=== PATIENT | male | born 1960 | race Caucasian/White ===

== ENCOUNTER 2017-01-15 16:20 | Emergency (ER) | payer BC ==
--- NOTE | 2017-01-15 16:42 | UC ---
Throat Pain/Nasal Wilder HPI - HPI Summary HPI Summary: 56 YEAR OLD GENTLEMAN PRESENTS WITH COMPLAINS OF SINUS CONGESTION AND TENDERNESS. - History of Current Complaint Stated Complaint: SINUS COMPLAINT Time Seen by Provider: 01/15/17 16:41 - Allergies/Home Medications Allergies/Adverse Reactions: Allergies Allergy/AdvReac Type Severity Reaction Status Date / Time Penicillins Allergy Hives Verified 01/15/17 16:50 Sulfa Antibiotics Allergy "I got, Verified 01/15/17 16:50 like, blotches on my face." Home Medications: Home Medications Acetaminophen W/ Codeine [Acetaminophen/Codeine #3 300-30 mg] 1 tab PO Q6H PRN 01/15/17 [History Confirmed 01/15/17] Albuterol HFA INHALER* [Ventolin HFA Inhaler*] 2 puff INH Q24H PRN 01/15/17 [ History Confirmed 01/15/17] Lisinopril [Prinivil TAB 20 mg] 12.5 mg PO DAILY 01/15/17 [History Confirmed ] Nasal [place] Prescribed 1 dose BOTH NARES DAILY 01/15/17 [History Confirmed 01/15] PMH/Surg Hx/FS Hx/Imm Hx - Surgical History Surgical History: Yes Surgery Procedure, Year, and Place: T&A as a child. Appendectomy as a child. Spleenectomy, 1969, [facility]. Right Knee Arthroscopy, 2012, [facility] - Social History Alcohol Use: Rare Substance Use Type: None Smoking Status (MU): Heavy Every Day Tobacco Smoker Type: Cigarettes Amount Used/How Often: 1 1/2 PPD Length of Time of Smoking/Using Tobacco: 30 Years Have You Smoked in the Last Year: Yes Household Exposure Type: Cigarettes Review of Systems Constitutional: Negative Skin: Negative Eyes: Negative ENT: Sore Throat, Nasal Discharge, Sinus Congestion, Sinus Pain/Tenderness Respiratory: Negative Cardiovascular: Negative Gastrointestinal: Negative Genitourinary: Negative Motor: Negative Neurovascular: Negative Musculoskeletal: Negative Neurological: Negative Psychological: Negative All Other Systems Reviewed And Are Negative: Yes Physical Exam Triage Information Reviewed: Yes Eye Exam: Normal ENT: Positive: Pharyngeal erythema, Nasal congestion, Tonsillar swelling Dental Exam: Normal Neck exam: Normal Neck: Positive: 1 Respiratory Exam: Normal Cardiovascular Exam: Normal Abdominal Exam: Normal Musculoskeletal Exam: Normal Neurological Exam: Normal Psychological Exam: Normal Skin Exam: Normal Throat Pain/Nasal Course/Dx - Differential Dx/Diagnosis Provider Diagnoses: SINUSITIS Discharge - Discharge Plan Condition: Stable Disposition: HOME Prescriptions: Azithromyxin CELY (NF) [Z-Cely (Zithromax) 250 mg tabs #6] 2 tab PO .TODAY, THEN 1 DAILY #6 tab Methylprednisolone [Medrol Dosepak 4 MG*] 4 mg PO .SEE CELY INSTRUCTION #21 tab Patient Education Materials: Sinusitis (ED) Referrals: Luciana Garcia MD [Primary Care Provider] - If Needed
[2017-01-15 16:50] VITALS: BP 140/83
[2017-01-15] MEDS ORDERED: predniSONE TAB* 20 MG PO ONE (17:04)
[2017-01-15] MEDS ORDERED: Azithromycin TAB* 250 MG PO ONE (17:04)
== END 2017-01-15 17:11 | disposition home or self-care (01) ==
LOC: UCCORT 16:20
DX: J32.9 Chronic sinusitis, unspecified (principal); F17.210 Nicotine dependence, cigarettes, uncomplicated
CPT/HCPCS: 99212; A9270-GY; G0463; J7512

== ENCOUNTER 2017-01-20 10:08 | Emergency (ER) | payer BC ==
--- NOTE | 2017-01-20 10:16 | UC ---
Throat Pain/Nasal Wilder HPI - HPI Summary HPI Summary: 56 year old male presents with complains of upper frontal gum abscess. - History of Current Complaint Stated Complaint: RECHECK SINUSITIS Time Seen by Provider: 01/20/17 10:16 - Allergies/Home Medications Allergies/Adverse Reactions: Allergies Allergy/AdvReac Type Severity Reaction Status Date / Time Penicillins Allergy Hives Verified 01/20/17 10:19 Sulfa Antibiotics Allergy "I got, Verified 01/20/17 10:19 like, blotches on my face." PMH/Surg Hx/FS Hx/Imm Hx - Surgical History Surgical History: Yes Surgery Procedure, Year, and Place: T&A as a child. Appendectomy as a child. Spleenectomy, 1969, [facility]. Right Knee Arthroscopy, 2012, [facility] - Social History Alcohol Use: Rare Substance Use Type: None Smoking Status (MU): Heavy Every Day Tobacco Smoker Type: Cigarettes Amount Used/How Often: 1 1/2 PPD Length of Time of Smoking/Using Tobacco: 30 Years Have You Smoked in the Last Year: Yes Household Exposure Type: Cigarettes Review of Systems Constitutional: Negative Skin: Negative Eyes: Negative ENT: Dental Pain Respiratory: Negative Cardiovascular: Negative Gastrointestinal: Negative Genitourinary: Negative Motor: Negative Neurovascular: Negative Musculoskeletal: Negative Neurological: Negative Psychological: Negative All Other Systems Reviewed And Are Negative: Yes Physical Exam Triage Information Reviewed: Yes Eye Exam: Normal ENT Exam: Normal Dental: Positive: Abscess @ - upper frontal gum (right incisor) Neck exam: Normal Neck: Positive: 1 Respiratory Exam: Normal Cardiovascular Exam: Normal Abdominal Exam: Normal Musculoskeletal Exam: Normal Neurological Exam: Normal Psychological Exam: Normal Skin Exam: Normal Throat Pain/Nasal Course/Dx - Differential Dx/Diagnosis Provider Diagnoses: upper frontal gum abscess Discharge - Discharge Plan Condition: Stable Disposition: HOME Prescriptions: Chlorhexidine MW 0.12% 473ML* [Peridex Mouth Wash 0.12%*] 15 ml MT TID PC #1 btl Clindamycin Cap(NF) [Cleocin 300 mg Cap(NF)] 300 mg PO TID #30 cap Patient Education Materials: Dental Abscess (ED), Sinusitis (ED) Referrals: Luciana Garcia MD [Primary Care Provider] - If Needed
[2017-01-20 10:20] VITALS: BP 140/84
== END 2017-01-20 10:39 | disposition home or self-care (01) ==
LOC: UCCORT 10:08
DX: K05.219 Aggressive periodontitis, localized, unspecified severity (principal); Z88.0 Allergy status to penicillin; Z88.2 Allergy status to sulfonamides; F17.210 Nicotine dependence, cigarettes, uncomplicated
CPT/HCPCS: 99212; G0463

== ENCOUNTER 2017-02-04 08:36 | Emergency (ER) | payer BC ==
[2017-02-04 08:52] VITALS: BP 145/69
--- NOTE | 2017-02-04 09:02 | UC ---
Throat Pain/Nasal Wilder HPI - HPI Summary HPI Summary: SINUS PAIN AND PRESSURE X 7 DAYS + PAIN UPPER JAW / GUMS + NASAL CONGESTION, PND, NO FEVER, NO CHILLS - History of Current Complaint Chief Complaint: UCDentalProblem Stated Complaint: RE CHECK SINUS Time Seen by Provider: 02/04/17 08:53 Hx Obtained From: Patient Onset/Duration: Gradual Onset, Lasting Days - 10, Still Present Severity: Moderate Cough: None Associated Signs & Symptoms: Positive: Sinus Discomfort, Nasal Discharge. Negative: Fever, Vomiting, Rash - Allergies/Home Medications Allergies/Adverse Reactions: Allergies Allergy/AdvReac Type Severity Reaction Status Date / Time Penicillins Allergy Hives Verified 02/04/17 08:46 Sulfa Antibiotics Allergy "I got, Verified 02/04/17 08:46 like, blotches on my face." PMH/Surg Hx/FS Hx/Imm Hx Previously Healthy: Yes Cardiovascular History: Hypertension - Surgical History Surgical History: Yes Surgery Procedure, Year, and Place: T&A as a child. Appendectomy as a child. Spleenectomy, 1969, [facility]. Right Knee Arthroscopy, 2012, [facility] - Family History Known Family History: Positive: Hypertension Negative: Diabetes - Social History Alcohol Use: Rare Substance Use Type: None Smoking Status (MU): Heavy Every Day Tobacco Smoker Type: Cigarettes Amount Used/How Often: 1 PPD Length of Time of Smoking/Using Tobacco: Since Age 19 Have You Smoked in the Last Year: Yes Household Exposure Type: Cigarettes Review of Systems Constitutional: Negative Skin: Negative Eyes: Negative ENT: Dental Pain, Sore Throat, Nasal Discharge Respiratory: Negative All Other Systems Reviewed And Are Negative: Yes Physical Exam Triage Information Reviewed: Yes Appearance: Well-Appearing, No Pain Distress, Well-Nourished Vital Signs: Initial Vital Signs Temp 98.6 F 02/04/17 08:40 Pulse 86 02/04/17 08:40 Resp 16 02/04/17 08:40 BP 145/69 02/04/17 08:40 Pulse Ox 98 02/04/17 08:40 Eye Exam: Normal Eyes: Positive: Conjunctiva Clear ENT: Positive: Normal ENT inspection, Pharyngeal erythema, Nasal congestion, Nasal drainage, TMs normal Dental: Positive: Other: - + ERYTHEMA UPPER GUMS Neck exam: Normal Neck: Positive: Supple, Nontender, No Lymphadenopathy Respiratory: Positive: Chest non-tender, Lungs clear, Normal breath sounds, No respiratory distress Cardiovascular: Positive: RRR, No Murmur, Pulses Normal Abdominal Exam: Normal Skin Exam: Normal Throat Pain/Nasal Course/Dx - Differential Dx/Diagnosis Provider Diagnoses: SINUSITIS. DENTAL PAIN Discharge - Discharge Plan Condition: Stable Disposition: HOME Prescriptions: DOXYcycline CAP(*) [DOXYcycline 100MG CAP(*)] 100 mg PO BID #20 cap Patient Education Materials: Dental Abscess (ED), Sinusitis (ED) Referrals: Luciana Garcia MD [Primary Care Provider] - 7 Days
== END 2017-02-04 09:07 | disposition home or self-care (01) ==
LOC: UCCORT 08:36
DX: J32.9 Chronic sinusitis, unspecified (principal); K08.89 Other specified disorders of teeth and supporting structures; I10 Essential (primary) hypertension; F17.210 Nicotine dependence, cigarettes, uncomplicated; Z88.0 Allergy status to penicillin; Z88.2 Allergy status to sulfonamides
CPT/HCPCS: 99212; G0463

== ENCOUNTER 2019-03-15 10:26 | Emergency (ER) | payer BC ==
--- OUTSIDE RECORDS SUMMARY | 2019-03-15 10:34 | XMS REPORT | Continuity of Care Document ---
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 [phone] Problems Active Problems Provider Date Arthralgia of the lower leg Brett Eid MD, FACS Onset: 05/22/2013 Current tear of medial cartilage AND/OR Brett Eid MD, ALIE Onset: meniscus of knee Sprain of cruciate ligament of knee Brett Eid MD, FACS Onset: 2012 Chondromalacia of patella Brett Eid MD, FACS 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/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, primary osteoarthritis Brett Eid MD, FACS Onset: 2012 Derangement of posterior horn of medial Brett Eid MD, FACS Onset: meniscus History and physical examination, Brett Eid MD, FACS Onset: 2012 follow-up Social History Type Date Description Comments Sex Unknown Cigarette Use Pack Years - 30 Tobacco Use Start: Unknown Current Cigarette Smoker 1 1/2 Packs Daily Smoking Status Reviewed: 01/30/19 Current Cigarette Smoker 1 1/2 Packs Daily ETOH Use Rarely consumes alcohol Tobacco Use Start: Unknown Patient is a current 1 pack/day for 30 smoker, smokes every day years Recreational Drug Use Denies Drug Use Allergies, Adverse Reactions, Alerts Active Allergies Reaction Severity Comments Date Penicillins 03/20/2013 Sulfa Drugs rash from sun exposure 05/22/2013 Medications Active Medications SIG Qnty Indications Ordering Provider Date Diclofenac Sodium ER 1 by mouth every 30tabs Z47.1 Kenneth Garcia MD 2018 day as needed 100mg Tablets ER 24HR Zyrtec Allergy 1 by mouth every 30tabs Unknown 10mg day Tablets Lisinopril/Hydrochlo 1/2 by mouth every Unknown rothiazide day 20-25mg Tablets Tylenol 2 tabs every 4 30tabs Unknown 325mg Tablets hours as needed Mucinex take two by mouth Unknown 600mg Tablets twice a day for ER 12HR chest congestion/cough Nasal Moist as needed Unknown 0.65% Solution Ventolin HFA take 2 puffs every Unknown 6 hours as needed 108(90Base) mcg/Act for shortness of Aerosol breath. History Medications Hydrocodone-Acetaminophen 1 tab by 45tabs Kenneth Garcia, 09/11/2018 - 5-325mg Tablets mouth every MD 02/20/2019 12 hours as needed for pain Medications Administered in Office Medication SIG Qnty Indications Ordering Provider Date Methylprednisolone Shefali Hargrove, 06/18/2018 (Depomedrol) 80mg injection [facility] Injection Methylprednisolone acetate Shefali Uriarte, 05/03/2018 (Depomedrol) 80mg injection [facility] Injection Methylprednisolone acetate Shefali Uriarte, 02/06/2018 (Depomedrol) 80mg injection [facility] Injection Immunizations Description No Information Available Vital Signs Date Vital Result Comment 03/07/2019 8:46am BP Systolic 123 mmHg BP Diastolic 80 mmHg Body Temperature 98.1 F Heart Rate 82 /min Height 70.5 inches 5'10.50" Weight 242.00 lb BMI (Body Mass Index) 34.2 kg/m2 BSA (Body Surface Area) 2.28 m2 [place] body weight in kilograms 77 kg O2 % BldC Oximetry 98 % 02/20/2019 3:35pm BP Systolic 102 mmHg BP Diastolic 67 mmHg Body Temperature 98.4 F Heart Rate 82 /min Height 70 inches 5'10" Weight 240.00 lb BMI (Body Mass Index) 34.4 kg/m2 BSA (Body Surface Area) 2.26 m2 [place] body weight in kilograms 75 kg O2 % BldC Oximetry 96 % Results Test Date Facility Test Result H/L Range Note Xray 03/07/2019 [facility] - Orthopedic RMP, L-Spine, < pending> [address] Complete (min [address] [place] [address] views) [phone] Procedures Date Code Description Status 03/07/2019 99528 Radiology, L-S Spine Complete Completed 02/20/2019 31726 Radiology, Distal Femur--Knee 1 Or 2 Views Completed 10/09/2018 58834 Radiology, Knee 3 Views Completed Medical Devices Description No Information Available Encounters Description No Information Available Assessments Date Code Description Provider 03/07/2019 M47.896 Other spondylosis, lumbar region Shefali Uriarte [facility] 02/20/2019 Z47.1 Aftercare following joint replacement Kenneth Garcia MD surgery 11/19/2018 Z47.1 Aftercare following joint replacement Kenneth Garcia MD surgery 11/19/2018 Z96.651 Presence of right artificial knee joint Kenneth Garcia MD 10/09/2018 Z47.1 Aftercare following joint replacement Shefali Uriarte, [facility] surgery 10/09/2018 Z96.651 Presence of right artificial knee joint Shefali Uriarte, [facility] 09/11/2018 Z47.1 Aftercare following joint replacement Shefali Uriarte, [facility] surgery 09/11/2018 Z96.651 Presence of right artificial knee joint Shefali Uriarte [facility] Plan of Treatment Future Appointment(s):11/20/2019 3:30 pm - Shefali Uriarte [facility]203/07/2019 - Shefali Uriarte, [facility]47.896 Other spondylosis , lumbar regionAllComments:I recommended some core strengthening exercises, heating pad and/or TENS unit. He will continue to see his chiropractor. If it fails to settle down and he may want to see someone who can try an injection. He will follow up with me as needed. Functional Status Description No Information Available Mental Status Description No Information Available Referrals Description No Information Available
--- OUTSIDE RECORDS SUMMARY | 2019-03-15 10:34 | XMS REPORT | Continuity of Care Document ---
:1960 External Reference #:[id number] Author Name Kenneth Garcia MD Address [address] [place] [id number] Care Team Providers Name Role Phone Luciana Garcia MD - Internal Medicine Care Team Information Maxillofacial Surgeon [phone] Problems Active Problems Provider Date Arthralgia of the lower leg Brett Eid MD, FACS Onset: 05/22/2013 Current tear of medial cartilage AND/OR Brett Eid MD, FACS Onset: meniscus of knee Sprain of cruciate [...] ER 1 by mouth every 30tabs Z47.1 eKnneth Garcia MD 2018 day as needed 100mg [...] 108(90Base) mcg/Act for shortness of Aerosol breath. Diclofenac Sodium ER 1 by mouth every Unknown day with food 100mg Tablets ER 24HR History Medications Hydrocodone-Acetaminophen 1 tab by 45tabs Kenneth Garcia, 09/11/2018 - 5-325mg Tablets mouth every MD 02/20/2019 12 hours as needed for pain Oxycodone-Acetaminophen take one 42tabs Richard, 08/27/2018 - 5-325mg Tablets tablet by MD Erica 10/09/2018 mouth every 4 hours as needed for pain Medications Administered in Office Medication SIG Qnty Indications Ordering Provider Date Methylprednisolone Shefali Hargrove, 06/18/2018 (Depomedrol) 80mg injection RPAC Injection Methylprednisolone acetate Shefali Uriarte, 05/03/2018 (Depomedrol) 80mg injection RPAC Injection Methylprednisolone acetate Shefali Uriarte, 02/06/2018 (Depomedrol) 80mg injection RPAC Injection Immunizations Description No Information Available Vital Signs Date Vital Result Comment 02/20/2019 3:35pm BP Systolic 102 mmHg BP Diastolic 67 mmHg Body Temperature 98.4 F Heart Rate 82 /min Height 70 inches 5'10" Weight 240.00 lb BMI (Body Mass Index) 34.4 kg/m2 BSA (Body Surface Area) 2.26 m2 Wheeler body weight in kilograms 75 kg O2 % BldC Oximetry 96 % 11/19/2018 3:32pm BP Systolic Sitting Right Arm 117 mmHg BP Diastolic Sitting Right Arm 80 mmHg Body Temperature 98.5 F Heart Rate 90 /min Height 70 inches 5'10" Weight 246.12 lb BMI (Body Mass Index) 35.3 kg/m2 BSA (Body Surface Area) 2.28 m2 Wheeler body weight in kilograms 75 kg O2 % BldC Oximetry 94 % Pain Level 2 Rt Knee Results Test Date Facility Test Result H/L Range Note Xray 02/20/2019 [facility] - Orthopedic RMP, Knee, <pending > [address], [place] [address] Ap & lateral [phone] Comp Metabolic 09/03/2018 [facility] Sodium 135 mmol/ L Normal 135-145 Panel [phone] Chloride 98 mmol/L Low 101-111 Co2 Carbon Dioxide 29 mmol/L Normal 22-32 Glucose 106 mg/dL High 70-100 Blood Urea Nitrogen 16 mg/dL Normal 6-24 Creatinine 0.61 mg/dL Low 0.67-1.17 BUN/Creatinine Ratio 26.2 High 8-20 Calcium 9.0 mg/dL Normal 8.6-10.3 Total Protein 6.4 g/dL Normal 6.4-8.9 Albumin 3.7 g/dL Normal 3.2-5.2 Globulin 2.7 g/dL Normal 2-4 Albumin/Globulin Ratio 1.4 Normal 1-3 Total Bilirubin 0.80 mg/dL Normal 0.2-1.0 Alkaline Phosphatase 138 U/L High 34-104 Alt 53 U/L High 7-52 Ast 34 U/L Normal 13-39 Egfr Non- 136.7 >60 Egfr 165.5 >60 1 Potassium 5.2 mmol/L High 3.5-5.0 Anion Gap 8 mmol/L Normal 2-11 Laboratory test 09/03/2018 [facility] C Reactive 39.07 High <8.01 finding [phone] Protein mg/L CBC Auto Diff 09/03/2018 [facility] White Blood 10.8 Normal 3.5-10.8 [phone] Count 10^3/uL Red Blood Count 5.10 10^6/uL Normal 4.00-5.40 Hemoglobin 14.5 g/dL Normal 14.0-18.0 Hematocrit 43 % Normal 42-52 Mean Corpuscular Volume 85 fL Normal 80-94 Mean Corpuscular Hemoglobin 29 pg Normal 27-31 Mean Corpuscular HGB Conc 34 g/dL Normal 31-36 Red Cell Distribution Width 14 % Normal 10.5-15 Platelet Count 348 10^3/uL Normal 150-450 Mean Platelet Volume 8.9 fL Normal 7.4-10.4 Abs Neutrophils 6.4 10^3/uL Normal 1.5-7.7 Abs Lymphocytes 2.9 10^3/uL Normal 1.0-4.8 Abs Monocytes 1.0 10^3/uL High 0-0.8 Abs Eosinophils 0.4 10^3/uL Normal 0-0.6 Abs Basophils 0.1 10^3/uL Normal 0-0.2 Abs Nucleated RBC 0 10^3/uL Granulocyte % 59.6 % Lymphocyte % 26.6 % Monocyte % 9.5 % Eosinophil % 3.4 % Basophil % 0.9 % Nucleated Red Blood Cells % 0 Comprehensive Metabolic 08/30/2018 [facility] Glucose 112 mg/dL High 74-[address] [place] [address] [phone] BUN 12 mg/dL Normal 7-18 Creatinine 0.7 mg/dL Normal 0.6-1.3 Glom Filtration Rate, Estimate >60 mL/min >60 If >60 mL/min >60 3 BUN/Creat 17.1 ratio Sodium 137 mmol/L Normal 136-145 Potassium 3.8 mmol/L Normal 3.5-5.1 Chloride 101 mmol/L Normal 98-107 Carbon Dioxide 30 mmol/L Normal 21-32 Anion Gap 6 mEq/L Low 8-16 Calcium 8.2 mg/dL Low 8.5-10.1 Total Protein 6.5 g/dL Normal 6.4-8.2 Albumin 2.8 g/dL Low 3.4-5.0 Globulin 3.7 g/dL Normal 1.9-4.3 Alb/Glob 0.8 ratio Bilirubin,Total 1.1 mg/dL High 0.2-1.0 Sgot/Ast 12 U/L Low 15-37 4 SGPT/Alt 21 U/L Normal 12-78 Alkaline Phosphatase 94 U/L Normal 45-117 Laboratory test 08/30/2018 [facility] C-Reactive 149.0 High <3.0 finding [address] Protein,Quant mg/[place] [address] [phone] CBC W/Automated 08/30/2018 [facility] White Blood Count 17.2 K/uL High 3.4- 10.5 Diff [address] [place] [address] [phone] Red Blood Count 4.96 M/uL Normal 4.20-5.80 Hemoglobin 14.3 gm/dL Normal 12.8-17.0 Hematocrit 42.8 % Normal 38.0-48.0 Mean Cell Volume 86.3 fl Normal 80.0-96.0 Mean Corpuscular HGB 28.8 pg Normal 27.0-33.0 Mean Corpuscular HGB Conc 33.4 g/dL Normal 31.7-36.0 Platelet Count 263 K/uL Normal 155-360 Red Cell Distri Width SD 47.1 fl Normal 36-51 Red Cell Distri Width %CV 15.2 % Normal 11.6-15.8 Mean Platelet Volume 10.7 fL High 6.6-10.6 Neut% 69.9 % Normal 33.0-73.0 Lymph % 14.6 % Low 20.0-42.0 [place] % 14.4 % High 0.0-10.0 Eo% 0.9 % Normal 0.0-6.6 Bas% 0.2 % Normal 0.0-1.1 Neut# 12.03 K/uL High 1.8-7.0 Lymph # 2.52 K/uL Normal 1.0-4.0 [place] # 2.48 K/uL High 0.0-0.8 Eos # 0.15 K/uL Normal 0.0-0.5 Baso # 0.03 K/uL Normal 0.0-0.1 Slide Review 08/30/2018 [facility] Slide Review DIFF ORDERED [address] [place] [address] [phone] Differential-WBC 08/30/2018 [facility] Total Cells 100 #CELLS Confirm [address] [place] [address] [phone] Neutrophils% 74 % High 33-73 Lymph% 12 % Low 20-42 Atypical Lymph% 6 % Normal 0-7 Monocyte% 7 % Normal 0-10 Basophil% 1 % Normal 0-2 Platelet Estimate NORMAL RBC Morphology NORMAL Aot Request 08/29/2018 [facility] Aot Request Test(s) added [address] [place] [address] [phone] Tests to be added: crp magnesium Laboratory test 08/29/2018 [facility] Magnesium 1.8 mg/dL Normal 1.8-2.4 finding [address] [place] [address] [phone] C-Reactive Protein,Quant 28.2 mg/L High <3.0 Comprehensive Metabolic 08/29/2018 [facility] Glucose 116 mg/dL High 74-106 Panel [address] [place] [address] [phone] BUN 12 mg/dL Normal 7-18 Creatinine 0.6 mg/dL Normal 0.6-1.3 Glom Filtration Rate, Estimate >60 mL/min >60 If >60 mL/min >60 6 BUN/Creat 20.0 ratio Sodium 141 mmol/L Normal 136-145 Potassium 4.4 mmol/L Normal 3.5-5.1 Chloride 107 mmol/L Normal 98-107 Carbon Dioxide 30 mmol/L Normal 21-32 Anion Gap 4 mEq/L Low 8-16 Calcium 8.0 mg/dL Low 8.5-10.1 Total Protein 6.1 g/dL Low 6.4-8.2 Albumin 3.0 g/dL Low 3.4-5.0 Globulin 3.1 g/dL Normal 1.9-4.3 Alb/Glob 1.0 ratio Bilirubin,Total 0.7 mg/dL Normal 0.2-1.0 Sgot/Ast 10 U/L Low 15-37 7 SGPT/Alt 22 U/L Normal 12-78 Alkaline Phosphatase 94 U/L Normal 45-117 CBC W/Automated 08/29/2018 [facility] White Blood 12.8 K/uL High 3.4-10.[address] [place] [address] [phone] Red Blood Count 4.84 M/uL Normal 4.20-5.80 Hemoglobin 13.9 gm/dL Normal 12.8-17.0 Hematocrit 42.7 % Normal 38.0-48.0 Mean Cell Volume 88.2 fl Normal 80.0-96.0 Mean Corpuscular HGB 28.7 pg Normal 27.0-33.0 Mean Corpuscular HGB Conc 32.6 g/dL Normal 31.7-36.0 Platelet Count 258 K/uL Normal 155-360 Red Cell Distri Width SD 48.4 fl Normal 36-51 Red Cell Distri Width %CV 15.2 % Normal 11.6-15.8 Mean Platelet Volume 11.0 fL High 6.6-10.6 Neut% 71.0 % Normal 33.0-73.0 Lymph % 16.4 % Low 20.0-42.0 [place] % 11.2 % High 0.0-10.0 Eo% 1.2 % Normal 0.0-6.6 Bas% 0.2 % Normal 0.0-1.1 Neut# 9.10 K/uL High 1.8-7.0 Lymph # 2.10 K/uL Normal 1.0-4.0 [place] # 1.44 K/uL High 0.0-0.8 Eos # 0.16 K/uL Normal 0.0-0.5 Baso # 0.03 K/uL Normal 0.0-0.1 Ua RFX Micro & Culture 08/29/2018 [facility] Urine Color YELLOW Yellow II [address] [place] [address] [phone] Urine Clarity CLEAR Clear Urine Glucose - Dipstick NEGATIVE mg/dL Negative Urine Bilirubin - Dipstick NEGATIVE Negative Urine Ketone NEGATIVE mg/dL Negative Urine Specific [place] 1.020 Normal 1.010-1.030 Urine Blood NEGATIVE Negative Urine PH 7.5 Normal 6.5-7.5 Urine Protein - Dipstick NEGATIVE mg/dL Negative Urine Urobilinogen - Dipstick 0.2 E.U./dL Normal 0.2-1.0 Urine Nitrite - Dipstick NEGATIVE Negative Urine Leuk Esterase NEGATIVE Negative Source: URINE, CLEAN CAT <SEE NOTE> 8 Blood Culture 08/29/2018 [facility] Blood Culture NO GROWTH: FINAL [address] Aerobic <SEE NOTE> [place] [address] [phone] Blood Culture Anaerobic NO GROWTH: FINAL <SEE NOTE> 10 Blood Culture 08/29/2018 [facility] Blood Culture NO GROWTH: FINAL [address] Aerobic <SEE NOTE> [place] [address] [phone] Blood Culture Anaerobic NO GROWTH: FINAL <SEE NOTE> 12 CBC W/Automated 08/28/2018 [facility] White Blood 15.8 K/uL High 3.4-10.[address] [place] [address] [phone] Red Blood Count 4.98 M/uL Normal 4.20-5.80 Hemoglobin 14.4 gm/dL Normal 12.8-17.0 Hematocrit 44.0 % Normal 38.0-48.0 Mean Cell Volume 88.4 fl Normal 80.0-96.0 Mean Corpuscular HGB 28.9 pg Normal 27.0-33.0 Mean Corpuscular HGB Conc 32.7 g/dL Normal 31.7-36.0 Platelet Count 269 K/uL Normal 155-360 Red Cell Distri Width SD 48.5 fl Normal 36-51 Red Cell Distri Width %CV 15.4 % Normal 11.6-15.8 Mean Platelet Volume 10.2 fL Normal 6.6-10.6 Neut% 72.7 % Normal 33.0-73.0 Lymph % 21.7 % Normal 20.0-42.0 [place] % 3.9 % Normal 0.0-10.0 Eo% 1.4 % Normal 0.0-6.6 Bas% 0.3 % Normal 0.0-1.1 Neut# 11.47 K/uL High 1.8-7.0 Lymph # 3.43 K/uL Normal 1.0-4.0 [place] # 0.62 K/uL Normal 0.0-0.8 Eos # 0.22 K/uL Normal 0.0-0.5 Baso # 0.04 K/uL Normal 0.0-0.1 Slide Review 08/28/2018 [facility] Slide Review (SEE NOTE) [address] [place] [address] [phone] Comprehensive 08/28/2018 [facility] Glucose 147 mg/dL High 74-10 Metabolic Panel [address] [place] [address] [phone] BUN 14 mg/dL Normal 7-18 Creatinine 0.8 mg/dL Normal 0.6-1.3 Glom Filtration Rate, Estimate >60 mL/min >60 If >60 mL/min >60 14 BUN/Creat 17.5 ratio Sodium 141 mmol/L Normal 136-145 Potassium 3.7 mmol/L 3.5-5.1 Chloride 106 mmol/L Normal 98-107 Carbon Dioxide 32 mmol/L Normal 21-32 Anion Gap 3 mEq/L Low 8-16 Calcium 8.2 mg/dL Low 8.5-10.1 Total Protein 6.1 g/dL Low 6.4-8.2 Albumin 3.0 g/dL Low 3.4-5.0 Globulin 3.1 g/dL Normal 1.9-4.3 Alb/Glob 1.0 ratio Bilirubin,Total 0.4 mg/dL Normal 0.2-1.0 Sgot/Ast 13 U/L Low 15-37 15 SGPT/Alt 22 U/L Normal 12-78 Alkaline Phosphatase 93 U/L Normal 45-117 Laboratory test 08/28/2018 [facility] Magnesium 2.0 mg/dL Normal 1.8-2.4 finding [address] [place] [address] [phone] 1 Because ethnic data is not always readily available, this report includes an eGFR for both -Americans and non- Americans. The National Kidney Disease Education Program (NKDEP) does not endorse the use of the MDRD equation for patients that are not between the ages of 18 and 70, are , have extremes of body size, muscle mass, or nutritional status, or are non- or non-. According to the National Kidney Foundation, irrespective of diagnosis, the stage of the disease is based on the level of kidney function: Stage Description GFR(mL/min/1.73 m(2)) 1 Kidney damage with normal or decreased GFR 90 2 Kidney damage with mild decrease in GFR 60-89 3 Moderate decrease in GFR 30-59 4 Severe decrease in GFR 15-29 5 Kidney failure <15 (or dialysis) 2 SEVERE OA RIGHT KNEE [address] 3 Note: Persistent reduction for 3 months or more in an eGFR <60 mL/min/1.73 m2 defines CKD. Patients with eGFR values >/=60 mL/min/1.73 m2 may also have CKD if evidence of persistent proteinuria is present. The original MDRD equation for estimated GFR is not valid for patients less than 18 years of age. Additional information may be found at www.kdoqi.org. 4 Values below the stated reference ranges of AST and ALT can be seen in normal populations. Clinical correlation is suggested. 5 Tests: crp magnesium Instructions: 6 Note: Persistent reduction for 3 months or more in an eGFR <60 mL/min/1.73 m2 defines CKD. Patients with eGFR values >/=60 mL/min/1.73 m2 may also have CKD if evidence of persistent proteinuria is present. The original MDRD equation for estimated GFR is not valid for patients less than 18 years of age. Additional information may be found at www.kdoqi.org. 7 Values below the stated reference ranges of AST and ALT can be seen in normal populations. Clinical correlation is suggested. 8 URINE, CLEAN CATCH 9 NO GROWTH: FINAL REPORT 10 NO GROWTH: FINAL REPORT 11 NO GROWTH: FINAL REPORT 12 NO GROWTH: FINAL REPORT 13 Instrument flagged sample for slide review. Less than 10% Bands seen, no other immature WBC's seen. RBC morphology essentially normal. Platelet estimate = NORMAL 14 Note: Persistent reduction for 3 months or more in an eGFR <60 mL/min/1.73 m2 defines CKD. Patients with eGFR values >/=60 mL/min/1.73 m2 may also have CKD if evidence of persistent proteinuria is present. The original MDRD equation for estimated GFR is not valid for patients less than 18 years of age. Additional information may be found at www.kdoqi.org. 15 Values below the stated reference ranges of AST and ALT can be seen in normal populations. Clinical correlation is suggested. Procedures Date Code Description Status 02/20/2019 19193 Radiology, Distal Femur--Knee 1 Or 2 Views Completed 10/09/2018 94313 Radiology, Knee 3 Views Completed 08/28/2018 47867 Total Knee Arthroplasty medial&lateral compartments w/wo Completed chong res 08/28/2018 29524 Total Knee Arthroplasty medial&lateral compartments w/wo Completed chong res Medical Devices Description No Information Available Encounters Description No Information Available Assessments Date Code Description Provider 02/20/2019 Z47.1 Aftercare following joint replacement Kenneth Garcia MD surgery 11/19/2018 Z47.1 Aftercare following joint replacement Kenneth Garcia MD surgery 11/19/2018 Z96.651 Presence of right artificial knee joint Kenneth Garcia MD 10/09/2018 Z47.1 Aftercare following joint replacement Shefali Uriarte, [facility] surgery 10/09/2018 Z96.651 Presence of right artificial knee joint Shefali Uriarte [facility] 09/11/2018 Z47.1 Aftercare following joint replacement Shefali Uriarte, [facility] surgery 09/11/2018 Z96.651 Presence of right artificial knee joint Shefali Uriarte, [facility] 08/30/2018 D72.829 Elevated white blood cell count, Jazmín Howe M.D. unspecified 08/30/2018 M17.11 Unilateral primary osteoarthritis, right Jazmín Howe M.D. knee 08/30/2018 I10 Essential (primary) hypertension Jazmín Howe M.D. 08/30/2018 R50.9 Fever, unspecified Jazmín Howe M.D. 08/29/2018 D72.829 Elevated white blood cell count, Jazmín Howe M.D. unspecified 08/29/2018 M17.11 Unilateral primary osteoarthritis, right Jazmín Howe M.D. knee 08/29/2018 I10 Essential (primary) hypertension Jazmín Howe M.D. 08/29/2018 R50.9 Fever, unspecified Jazmín Howe M.D. 08/28/2018 M17.11 Unilateral primary osteoarthritis, right Shefali Uriarte [facility] knee 08/28/2018 M17.11 Unilateral primary osteoarthritis, right Kenneth Garcia MD knee 08/28/2018 D72.829 Elevated white blood cell count, Jazmín Howe M.D. unspecified 08/28/2018 M17.11 Unilateral primary osteoarthritis, right Jazmín Howe M.D. knee 08/28/2018 I10 Essential (primary) hypertension Jazmín Howe M.D. 08/28/2018 F17.210 Nicotine dependence, cigarettes, Jazmín Howe M.D. uncomplicated Plan of Treatment Future Appointment(s):11/20/2019 3:30 pm - Shefali Uriarte [facility] at [facility]rf3302/20/2019 - Kenneth Garcia MDZ47.1 Aftercare following joint replacement surgeryNew Medication:Diclofenac Sodium ER 100 mg - 1 by mouth every day as neededNew Xrays:RMP, Knee, RT, Ap, lat & sunrise (3 view), Ordered: 02/20/19RMP, Knee, RT, Standing Ap & lateral, Ordered: Follow up:Follow-up in 6 months time with pre-clinic x-rays and exam Functional Status Description No Information Available Mental Status Description No Information Available Referrals Description No Information Available
[2019-03-15 10:40] VITALS: BP 119/66
--- NOTE | 2019-03-15 10:46 | UC ---
Respiratory Complaint HPI - HPI Summary HPI Summary: 58-year-old male who has had head congestion and occasional cough over the past 2 days. He denies any fever or chills. He is a smoker. - History of Current Complaint Chief Complaint: UCGeneralIllness Stated Complaint: CONGESTION Time Seen by Provider: 03/15/19 10:38 Hx Obtained From: Patient Onset/Duration: Gradual Onset Timing: Constant Severity Initially: Mild Severity Currently: Mild Pain Intensity: 4 Character: Cough: Productive - Productive cough of clear sputum Alleviating Factors: Bronchodilator Associated Signs And Symptoms: Positive: Wheezing, URI, Nasal Congestion - Allergies/Home Medications Allergies/Adverse Reactions: Allergies Allergy/AdvReac Type Severity Reaction Status Date / Time Penicillins Allergy Hives Verified 03/15/19 10:40 Sulfa (Sulfonamide Allergy Rash Verified 03/15/19 10:40 Antibiotics) Home Medications: Home Medications Albuterol HFA INHALER* [Ventolin HFA Inhaler*] 2 puff INH Q6H PRN 03/15/19 [ History Confirmed 03/15/19] celeCOXIB CAP* [CeleBREX CAP*] 400 mg PO DAILY 03/15/19 [History Confirmed 03/15] guaiFENesin ER TAB [Mucinex*] 600 mg PO BID 03/15/19 [History Confirmed 03/15/19 ] PMH/Surg Hx/FS Hx/Imm Hx - Additional Past Medical History Additional PMH: History of arthritis Previously Healthy: Yes Cardiovascular History: Hypertension Respiratory History: Asthma - Surgical History Surgical History: Yes Surgery Procedure, Year, and Place: T&A as a child. Appendectomy as a child. Spleenectomy, 1969, [facility]. Right Knee Arthroscopy, 2012, [facility]. knee replacement 2019 - Family History Known Family History: Positive: Hypertension Negative: Diabetes - Social History Alcohol Use: Rare Substance Use Type: None Smoking Status (MU): Heavy Every Day Tobacco Smoker Type: Cigarettes Amount Used/How Often: 1 PPD Length of Time of Smoking/Using Tobacco: Since Age 19 Have You Smoked in the Last Year: Yes Household Exposure Type: Cigarettes Review of Systems All Other Systems Reviewed And Are Negative: Yes ENT: Positive: Nasal Discharge, Sinus Congestion Respiratory: Positive: Cough - Productive cough of clear sputum Is Patient Immunocompromised?: No Physical Exam Triage Information Reviewed: Yes Appearance: Well-Appearing, No Pain Distress, Well-Nourished Vital Signs: Initial Vital Signs Temp 98.9 F 03/15/19 10:35 Pulse 95 03/15/19 10:35 Resp 18 03/15/19 10:35 BP 119/66 03/15/19 10:35 Pulse Ox 98 03/15/19 10:35 Vital Signs Reviewed: Yes Eyes: Positive: Conjunctiva Clear ENT: Positive: Hearing grossly normal, Pharynx normal, Nasal congestion, Nasal drainage - Clear nasal coryza, TMs normal, Uvula midline. Negative: Sinus tenderness Neck: Positive: Supple, Nontender, No Lymphadenopathy Respiratory: Positive: No respiratory distress, No accessory muscle use, Wheezing - Mild wheezing with forced expiration. Cardiovascular: Positive: RRR, No Murmur, Pulses Normal, Brisk Capillary Refill Musculoskeletal Exam: Normal Neurological Exam: Normal Psychological Exam: Normal Skin Exam: Normal Respiratory Course/Dx - Course Course Of Treatment: Chest x-ray:Indication: Cough, smoker. 2 views of the chest demonstrates no mediastinal shift. Heart is of normal size and configuration. Lung gaming show no pleural fluid, pneumonia or pneumothorax. IMPRESSION: No active cardiopulmonary disease is noted. No significant change since December 23, 2009. Patient was given a DuoNeb treatment and experienced almost complete clearing of wheezing. He feels like he is taking a better breath. I'm going to start him on 4 days of prednisone, continue his albuterol inhaler at home 2 puffs every 4 hours as needed. Definite follow-up with his primary care provider on Monday or Monday for recheck if no improvement. - Differential Dx/Diagnosis Provider Diagnosis: Bronchitis Discharge ED - Sign-Out/Discharge Documenting (check all that apply): Patient Departure All imaging exams completed and their final reports reviewed: Yes - Discharge Plan Condition: Good Disposition: HOME Prescriptions: predniSONE TAB* [Deltasone 10 MG TAB*] 40 mg PO DAILY 4 Days #16 tab Patient Education Materials: Acute Bronchitis (ED) Referrals: Luciana Garcia MD [Primary Care Provider] - Additional Instructions: Take the prednisone with food, continue your inhaler 2 puffs every 4 hours as needed for wheezing. Follow-up with your primary care provider in 4 or 5 days if worsening symptoms or if fever - Billing Disposition and Condition Condition: GOOD Disposition: Home
[2019-03-15] MEDS ORDERED: Albuterol/Ipratropium NEB.SOL* Albuterol 2.5 MG/Ipratropium 0.5 MG 3 ML INH ONE (10:50)
== END 2019-03-15 11:39 | disposition home or self-care (01) ==
LOC: UCCORT 10:26
DX: J45.909 Unspecified asthma, uncomplicated (principal); I10 Essential (primary) hypertension; Z88.0 Allergy status to penicillin; Z88.2 Allergy status to sulfonamides; Z96.659 Presence of unspecified artificial knee joint; F17.210 Nicotine dependence, cigarettes, uncomplicated
CPT/HCPCS: 71046; 99212; A9270-GY; G0463